=== PATIENT | male | born 1970 | race Caucasian/White ===

== ENCOUNTER 2020-06-04 16:37 | Emergency (ER) | payer OTHER ==
[~2020-06-04 16:37] MED LIST: IBUPROFEN600 MG PO; NORFLEX 100 MG100 MG PO; PREDNISONE 50 M50 MG PO
[2020-06-04 18:14] LABS: HEMOGLOBIN 16.3 gm/dl (14.0-17.5); RED BLOOD COUNT 4.87 M/UL (4.20-5.50); WHITE BLOOD COUNT 8.5 K/UL (4.5-11.0)
[2020-06-04 18:41] LABS: BUN/CREATININE RATIO 21 (0-10)
[2020-06-04] MEDS ORDERED: ASPIRIN CHEWABL81 MG PO (23:10)
[2020-06-04] MEDS ORDERED: PERCOCET 5/325 T1 EA PO (23:10)
== END 2020-06-04 23:25 | disposition home or self-care (01) ==
LOC: ER1 16:37
PROVIDERS: Emergency Medicine
DX: R53.1 Weakness (principal); R07.9 Chest pain, unspecified; R10.9 Unspecified abdominal pain; R19.5 Other fecal abnormalities; F17.200 Nicotine dependence, unspecified, uncomplicated; Z20.822 Contact with and (suspected) exposure to COVID-19; R10.812 Left upper quadrant abdominal tenderness; R10.814 Left lower quadrant abdominal tenderness; R55 Syncope and collapse
CPT/HCPCS: 70450; 71045; 80053; 81001; 82272; 82550; 82553; 83690; 83735; 83874; 84484; 85025; 85610; 85730; 87086; 93005; 99285; G0480; U0002